=== PATIENT | female | born 1960 | race Caucasian/White ===

== ENCOUNTER 2022-06-12 13:04 | Outpatient (REF) | payer OTHER, SELFPAY ==
--- NOTE | ~2022-06-12 | XR_ITS ---
EXAMINATION: XR CHEST CLINICAL INFORMATION: Cough COMPARISON: None TECHNIQUE: 2 views of the chest were obtained. FINDINGS: No significant abnormality is noted involving the heart, lungs, mediastinum, bony thorax or soft tissues. XR/XR chest 2V IMPRESSION: Unremarkable examination.
[2022-06-12 15:01] LABS: Influenza A PCR NEGATIVE (Negative); Influenza B PCR NEGATIVE (Negative); Resp Syncy Virus RNA Qual PCR NEGATIVE (Negative); SARS COV2 PCR INHOUSE NEGATIVE (Negative)
== END 2022-06-12 13:05 | disposition home or self-care (01) ==
LOC: HO.HMGCX 13:04
PROVIDERS: PCP Internal Medicine; Visit Provider Nurse Practitioner Family
DX: Z20.822 Contact with and (suspected) exposure to COVID-19 (principal); R05.9 Cough, unspecified
CPT/HCPCS: 0241U; 71046

== ENCOUNTER 2025-05-09 12:34 | Outpatient (REF) | payer MEDICARE, OTHER, SELFPAY ==
--- OUTSIDE RECORDS SUMMARY | 2025-05-10 07:45 | XMS_ITS | Clinical Summary ---
Author Organization [facility] Address [address] [place] [address] Phone Care Team Providers Care Analytical Manager Name Role Phone Destinee Marx MD Primary Care Provider [phone] Allergies Active Allergy Reactions Criticality Noted Date Comments Doxycycline 02/20/2021 Levofloxacin 02/20/2021 Niacin 02/20/2021 Medications levothyroxine (SYNTHROID, LEVOTHROID) 125 MCG tablet 11/15/2020 Active omeprazole (PriLOSEC) [address] capsule 12/18/2020 Active Biotin 10 MG capsule Take 1 tablet by mouth 1 (one) time each day Active Cholecalciferol (Vitamin D) 25 MCG (1000 UT) tablet Take 1 tablet by mouth 1 (one) time each day Active Ascorbic Acid (vitamin C) 1000 MG tablet Take 1,000 mg by mouth 1 (one) time each day Active aspirin (ST SHELL) 81 MG EC tablet Take 81 mg by mouth 1 (one) time each day Active acetaminophen (TYLENOL) 500 MG tablet Take 1 mg by mouth every 6 (six) hours if needed for mild pain Active Active Problems Problem Noted Date Diagnosed Date Hypertension 02/21/2021 Family History Medical History Relation Comments Cancer Father Diabetes Mother Heart disease Mother Hypertension Mother Relation Status Comments Father Mother Social History Tobacco Use Types Packs/Day Years Used Date Smoking Tobacco: Never Smokeless Tobacco: Never Alcohol Use Standard Drinks/Week Comments Yes 0 (1 standard drink = 0.6 oz pur e alcohol) Comments Unknown Sex and Gender Information Value Date Recorded Sex Assigned at Not on file Legal Sex Female 5:00 PM EST Gender Identity Not on file Sexual Orientation Not on file Last Filed Vital Signs Vital Sign Reading Time Taken Comments Blood Pressure 150/108 02/20/2021 9:33 AM EDT Pulse 70 02/20/2021 9:33 AM EDT Temperature - - Respiratory Rate - - Oxygen Saturation - - Inhaled Oxygen Concentration - - Weight 78 kg (172 lb) 02/20/2021 9:33 AM EDT Height - - Body Mass Index - - Plan of Treatment Health Maintenance Due Date Last Done Comments Breast Cancer Screening 1960 Colorectal Cancer Screening: Annual FOBT 2009 Colorectal Cancer Screening: Colonoscopy 2009 Colorectal Cancer Screening: Sigmoidoscopy 2009 Pneumococcal Vaccine: 50+ Ye ars (1 of 1 - PCV) 2010 Influenza Vaccine (#1) 2025 Hepatitis B Vaccine Aged Out No longe r eligible based on patient's age to complete this topic Insurance [facility] Care Teams Analytical Manager Relationship Specialty Start Date End Date Destinee Marx MD [id number], [place] PCP - General Internal Medicine 01/08/21
== END 2025-05-09 12:35 | disposition home or self-care (01) ==
LOC: HO.HMGCLDS 12:34
PROVIDERS: PCP Internal Medicine; Visit Provider Internal Medicine
DX: Z00.00 Encounter for general adult medical examination without abnormal findings (principal); I10 Essential (primary) hypertension; E03.9 Hypothyroidism, unspecified; L65.9 Nonscarring hair loss, unspecified; M85.80 Other specified disorders of bone density and structure, unspecified site; R22.43 Localized swelling, mass and lump, lower limb, bilateral; Z79.899 Other long term (current) drug therapy
CPT/HCPCS: 96127; G0402

== ENCOUNTER 2025-05-09 12:34 | Outpatient (AMB) | payer MEDICARE, OTHER, SELFPAY ==
--- NOTE | 2025-05-09 12:45 | MHC.PC.OV ---
Vital Signs 05/09/25 12:52 05/09/25 13:35 Height 5 ft 6.77 in Weight 171 lb BMI 27.0 BP 168/106 H 150/98 H Blood Pressure Location Lt brachial Lt brachial Position Sitting Respiration 18 Pulse 77 Pulse Source Pulse Oximeter Temp 98.6 F Temp Source Temporal Artery Scan Pulse Oximetry (%) 98 Oxygen Delivery Method Room Air Intake Visit Reasons: Physical - see comments Electronic Service Technician Required: No Accompanied by: Self / Same As Patient Allergies niacin Adverse Reaction (Severe, Verified 05/09/25 12:45) Swelling doxycycline Adverse Reaction (Intermediate, Verified 05/09/25 12:45) Photosensitivity levofloxacin Adverse Reaction (Intermediate, Verified 05/09/25 12:45) Nausea and Vomiting Medication List - Last Reconciled 05/09/25 by Destinee Marx MD acetaminophen (Tylenol Extra Strength) 500 mg PO Q6H PRN ascorbate sodium (vitamin C) mg PO aspirin 81 mg PO DAILY cholecalciferol (vitamin D3) 25 mcg PO DAILY levothyroxine 112 mcg PO DAILY lisinopril 10 mg PO DAILY omeprazole 20 mg PO DAILY Tobacco use date assessed: 05/09/25 Fall risk assessment: 2 + Falls in past year Last assessed Fall Risk: 05/09/25 Dental Screening Dental Screen Date: 05/09/25 Did you have a dental visit in the last 12 months?: Yes Did you have a dental problem in the last 6 months where you did not have access to dental care?: No Was dental information given to patient?: Patient has dentist [facility] Medical History (Updated 05/09/25 @ 13:39 by Destinee Marx MD) Osteopenia Vitamin D deficiency Encounter for initial preventive physical examination covered by Medicare Diverticulitis Primary hypertension Acquired hypothyroidism Cough Surgical History (Updated 05/09/25 @ 12:39 by Destinee Marx MD) S/P partial colectomy S/P small bowel resection Family History (Updated 05/09/25 @ 12:40 by Destinee Marx MD) Other Rheumatoid arthritis Stomach cancer Social History Housing: House Patient Tobacco Use Status: Never used Tobacco e-Cigarette/Vaping Use: Never Used service: No Current occupational status: retired Questionnaire PHQ-9 Over the last 2 weeks, how often have you been bothered by any of the following problems? 1. Little interest or pleasure in doing things: not at all 2. Feeling down, depressed, or hopeless: not at all 3. Trouble falling or staying asleep, or sleeping too much: not at all 4. Feeling tired or having little energy: not at all 5. Poor appetite or overeating: not at all 6. Feeling bad about yourself - or that you are a failure or have let yourself or your family down: not at all 7. Trouble concentrating on things, such as reading the newspaper or watching television: not at all 8. Moving or speaking so slowly that other people could have noticed. Or the opposite - being so fidgety or restless that you have been moving around a lot more than usual: not at all 9. Thoughts that you would be better off or of hurting yourself in some way: not at all Total score: 0 Source: Developed by Drs. Filipe Pulido, Varsha Chang, Edilberto Landon and colleagues, with an educational nasima from [employer]. Thrive Questionnaire Date Thrive assessed: 05/09/25 I am a: Patient What is your living situation today?: I have a steady place to live Within the past 12 months, did the food you bought not last and you didn't have the money to get more?: Never true Within the past 12 months, did you worry whether your food would run out before you got money to buy more?: Never true Do you have trouble paying for medicines?: No Do you have trouble getting transportation to medical appointments?: No Do you have trouble paying your heating and electricity bill?: No Do you have trouble taking care of your child, family member or friend?: No Do you have trouble with day-to-day activities such as bathing, preparing meals, shopping, managing finances, etc.?: No Are you currently unemployed and looking for a job?: No Are you interested in more education?: No Please select the resources that you would like help with: None Currently or been in a relationship where the following occur: No concerns reported THRIVE Score: 0 AUDIT C Alcohol Use Questionnaire (AUDIT-C) 1. How often do you have a drink containing alcohol?: 2-4 times a month 2. How many drinks containing alcohol do you have on a typical day when you are drinking?: 1 or 2 3. How often do you have six or more drinks on one occasion?: Never Total Score: 2 CURTIS-7 AMB Questionnaire CURTIS-7 Date CURTIS - 7 assessed: 05/09/25 Feeling nervous, anxious, or on edge: 0 = Not at all Not being able to stop or control worryin = Not at all Worrying too much about different things: 0 = Not at all Trouble relaxin = Not at all Being so restless that it is hard to sit still: 0 = Not at all Becoming easily annoyed or irritable: 0 = Not at all Feeling afraid as if something awful might happen: 0 = Not at all Total CURTIS-7 score (0-4 normal; 5-9 mild; 10-14 moderate; 15-21 severe): 0 Source: Developed by Drs. Filipe Pulido, Varsha Chang, Edilberto Landon and colleagues, with an educational nasima from [employer]. Physical exam (Primary Care) Vital Signs: Last Vital Signs Temp 98.6 F 05/09/25 12:52 Pulse 77 05/09/25 12:52 Resp 18 05/09/25 12:52 BP 150/98 H 05/09/25 13:35 Pulse Ox 98 05/09/25 12:52 Oxygen Delivery Method Room Air 05/09/25 12:52 BMI result Body Mass Index 27.0 Tobacco/Smoking Status: Tobacco use Status Tobacco use date assessed 05/09/25 05/09/25 12:49 Patient Tobacco Use Status Never used Tobacco 05/09/25 12:49 e-Cigarette/Vaping Use Never Used 05/09/25 12:59 PHQ-9: PHQ-9 Score PHQ-9: Total score 0 05/09/25 13:57 Thrive Assessment: Date of Thrive Assessment Date Thrive assessed 05/09/25 05/09/25 12:49 Currently or been in a relationship where the following occur: No concerns reported Office Procedures Vision Screening Right Eye: 20/50 Left Eye: 20/40 Bilateral: 20/20 19807 - Vision Screening Coding CPT Codes Vision Screening - Vision Screenin - Vision Screening ([id number]) Assessment & Plan Assessment & Plan Orders: Orders AMB EKG-In Office Today Z00.00 - Encounter for general adult medical examination without abnormal findings Complete Blood Count Auto Diff Today E03.9 - Hypothyroidism, unspecified, E55.9 - Vitamin D deficiency, unspecified, I10 - Essential (primary) hypertension, M85.80 - Other specified disorders of bone density and structure, unspecified site Microalbumin, Random (w Creat) Today I10 - Essential (primary) hypertension Comprehensive Met. Panel Today E03.9 - Hypothyroidism, unspecified, E55.9 - Vitamin D deficiency, unspecified, I10 - Essential (primary) hypertension, M85.80 - Other specified disorders of bone density and structure, unspecified site Lipid Panel Today E03.9 - Hypothyroidism, unspecified, E55.9 - Vitamin D deficiency, unspecified, I10 - Essential (primary) hypertension, M85.80 - Other specified disorders of bone density and structure, unspecified site Hemoglobin A1c Today E03.9 - Hypothyroidism, unspecified, E55.9 - Vitamin D deficiency, unspecified, I10 - Essential (primary) hypertension, M85.80 - Other specified disorders of bone density and structure, unspecified site TSH reflex Free T4 Today E03.9 - Hypothyroidism, unspecified, E55.9 - Vitamin D deficiency, unspecified, I10 - Essential (primary) hypertension, M85.80 - Other specified disorders of bone density and structure, unspecified site Ferritin Today E03.9 - Hypothyroidism, unspecified, E55.9 - Vitamin D deficiency, unspecified, I10 - Essential (primary) hypertension, M85.80 - Other specified disorders of bone density and structure, unspecified site IRON PROFILE Today E03.9 - Hypothyroidism, unspecified, E55.9 - Vitamin D deficiency, unspecified, I10 - Essential (primary) hypertension, M85.80 - Other specified disorders of bone density and structure, unspecified site Magnesium Today E03.9 - Hypothyroidism, unspecified, E55.9 - Vitamin D deficiency, unspecified, I10 - Essential (primary) hypertension, M85.80 - Other specified disorders of bone density and structure, unspecified site Vitamin B12 Today E03.9 - Hypothyroidism, unspecified, E55.9 - Vitamin D deficiency, unspecified, I10 - Essential (primary) hypertension, M85.80 - Other specified disorders of bone density and structure, unspecified site Vitamin D 25-OH Total Today E03.9 - Hypothyroidism, unspecified, E55.9 - Vitamin D deficiency, unspecified, I10 - Essential (primary) hypertension, M85.80 - Other specified disorders of bone density and structure, unspecified site
[2025-05-09 12:52] VITALS: BP 168/106; PULSE 77; RESP 18; TEMP 37; O2SAT 98; BMI 27.0
[2025-05-09 13:35] VITALS: BP 150/98
--- NOTE | 2025-05-09 13:57 | AM.OFFVISMDC ---
Intake Vital Signs 05/09/25 12:52 05/09/25 13:35 Height 5 ft 6.77 in Weight 171 lb BMI 27.0 BP 168/106 H 150/98 H Blood Pressure Location Lt brachial Lt brachial Position Sitting Respiration 18 Pulse 77 Pulse Source Pulse Oximeter Temp 98.6 F Temp Source Temporal Artery Scan Pulse Oximetry (%) 98 Oxygen Delivery Method Room Air Intake Visit Reasons: Physical - see comments Irrigation Engineer Required: No Accompanied by: Self / Same As Patient Allergies niacin Adverse Reaction (Severe, Verified 05/09/25 12:45) Swelling doxycycline Adverse Reaction (Intermediate, Verified 05/09/25 12:45) Photosensitivity levofloxacin Adverse Reaction (Intermediate, Verified 05/09/25 12:45) Nausea and Vomiting Medication List - Last Reconciled 05/09/25 by Destinee Marx MD acetaminophen (Tylenol Extra Strength) 500 mg PO Q6H PRN ascorbate sodium (vitamin C) mg PO aspirin 81 mg PO DAILY cholecalciferol (vitamin D3) 25 mcg PO DAILY levothyroxine 112 mcg PO DAILY lisinopril 10 mg PO DAILY omeprazole 20 mg PO DAILY HPI HPI Comments History of Present Illness Details The patient is a 65 year old female presenting for re-establishment of care, a Welcome to Medicare physical. Health Risk Assessment completed. No cognitive deficits, no opioid use. Essential Hypertension: The patient manages hypertension with lisinopril but takes only one 10mg pill, as when she took two-10mg pills she got chest pressure. The patient's blood pressure was elevated upon arrival, which the patient attributes to a stressful conversation. Hypothyroidism: The patient reports symptoms suggestive of hypothyroidism over the past three to six months, including increased hair thinning and feeling colder than usual. Conjunctivochalasis: The patient is scheduled for bilateral eye surgery for conjunctivochalasis on Thursday. This condition has been causing distorted vision and a persistent foreign body sensation in the ayes, with the right eye being worse than the left. Health Maintenance: This is the patient's first Welcome to Medicare visit since recently becoming eligible. The patient completed a Cologuard test approximately two years ago, with normal results per patient(will obtain record). A previous bone density scan revealed mild osteopenia. The next mammogram is due in August 2025. The patient declines flu and COVID-19 immunizations, citing a previous adverse reaction to a shot that caused prolonged symptoms, including cardiac issues. Gastrointestinal History: The patient takes prescription omeprazole and reports being free of reflux symptoms. Since a past colon surgery, the patient experiences intermittent changes in bowel movements and occasional abdominal cramping, which can be triggered by certain foods. Care Team OBGYN- Dr. Finley Ophthalmology- Dr. Ladd [facility] Medical History (Updated 05/09/25 @ 13:39 by Destinee Marx MD) Osteopenia Vitamin D deficiency Encounter for initial preventive physical examination covered by Medicare Diverticulitis Primary hypertension Acquired hypothyroidism Cough Surgical History (Updated 05/09/25 @ 12:39 by Destinee Marx MD) S/P partial colectomy S/P small bowel resection Family History (Updated 05/09/25 @ 12:40 by Destinee Marx MD) Other Rheumatoid arthritis Stomach cancer Social History Patient Tobacco Use Status: Never used Tobacco Questionnaire Medicare Wellness Checkup [age] What gender do you identify with?: female During the past 4 weeks, how much have you been bothered by emotional problems such as feeling anxious, depressed, irritable, sad or downhearted, and blue?: not at all During the past 4 weeks, has your physical & emotional health limited your social activities with family, friends, neighbors, or groups?: not at all During the past 4 weeks, how much bodily pain have you generally had?: no pain During the past 4 weeks, was someone available to help you if you needed & wanted help?: yes, as much as I wanted During the past 4 weeks, what was the hardest physical activity you could do for at least 2 minutes?: very heavy Can you get to places out of walking distance without help? (For eg., can you travel alone on buses, taxis or drive your car?): Yes Can you go shopping for groceries or clothes without someone's help?: Yes Can you prepare your own meals?: Yes Can you do your housework without help?: Yes Because of any health problems, do you need the help of another person with your personal care needs such as eating, bathing, dressing or getting around the house?: No Can you handle your own money without help?: Yes During the past 4 weeks, how would you rate your health in general?: excellent During the past 4 weeks how have things been going for you?: very well; could hardly better Are you having difficulties driving your car?: no Do you always fasten your seat belt when you are in a car?: yes, usually During past 4 weeks, have you been bothered by the following: never: Falling or dizzy when standing up, Trouble eating well?, Teeth or denture problems?, Problems using the telephone? and Tiredness or fatigue? Have you fallen 2 or more times in the past year?: Yes Are you afraid of falling?: No Are you a smoker?: no During the past 4 weeks, how many drinks of wine, beer, or other alcoholic beverages did you have?: 1 drink or less per week Do you exercise for about 20 minutes 3 or more times a week?: yes, most of the time Have you been given information to help with the following?: no: Hazards in your house that might hurt you? and no: Keeping track of your medications? How often do you have trouble taking medicines the way you have been told to take them?: I always take medicine as prescribed How confident are you that you can control & manage most of your health problems?: very confident What is your race?: White PHQ-9 Over the last 2 weeks, how often have you been bothered by any of the following problems? 1. Little interest or pleasure in doing things: not at all 2. Feeling down, depressed, or hopeless: not at all 3. Trouble falling or staying asleep, or sleeping too much: not at all 4. Feeling tired or having little energy: not at all 5. Poor appetite or overeating: not at all 6. Feeling bad about yourself - or that you are a failure or have let yourself or your family down: not at all 7. Trouble concentrating on things, such as reading the newspaper or watching television: not at all 8. Moving or speaking so slowly that other people could have noticed. Or the opposite - being so fidgety or restless that you have been moving around a lot more than usual: not at all 9. Thoughts that you would be better off or of hurting yourself in some way: not at all Total score: 0 Depression Screening Interpretation: Negative Depression Screening Done: Yes 14092 - PHQ-9 Billing: Yes Source: Developed by Drs. Filipe Pulido, Edilberto Lowe and colleagues, with an educational nasima from [employer]. Thrive Questionnaire Date Thrive assessed: 05/09/25 I am a: Patient What is your living situation today?: I have a steady place to live Within the past 12 months, did the food you bought not last and you didn't have the money to get more?: Never true Within the past 12 months, did you worry whether your food would run out before you got money to buy more?: Never true Do you have trouble paying for medicines?: No Do you have trouble getting transportation to medical appointments?: No Do you have trouble paying your heating and electricity bill?: No Do you have trouble taking care of your child, family member or friend?: No Do you have trouble with day-to-day activities such as bathing, preparing meals, shopping, managing finances, etc.?: No Are you currently unemployed and looking for a job?: No Are you interested in more education?: No Please select the resources that you would like help with: None Currently or been in a relationship where the following occur: No concerns reported THRIVE Score: 0 CURTIS-7 AMB Questionnaire CURTIS-7 Date CURTIS - 7 assessed: 05/09/25 Feeling nervous, anxious, or on edge: 0 = Not at all Not being able to stop or control worryin = Not at all Worrying too much about different things: 0 = Not at all Trouble relaxin = Not at all Being so restless that it is hard to sit still: 0 = Not at all Becoming easily annoyed or irritable: 0 = Not at all Feeling afraid as if something awful might happen: 0 = Not at all Total CURTIS-7 score (0-4 normal; 5-9 mild; 10-14 moderate; 15-21 severe): 0 Source: Developed by Drs. Filipe Pulido, Edilberto Lowe and colleagues, with an educational nasima from [employer]. AUDIT C Alcohol Use Questionnaire (AUDIT-C) 1. How often do you have a drink containing alcohol?: 2-4 times a month 2. How many drinks containing alcohol do you have on a typical day when you are drinking?: 1 or 2 3. How often do you have six or more drinks on one occasion?: Never Total Score: 2 Review of Systems Narrative Review of Systems - General: Reports cold intolerance for the last 6 months. - Eyes: Reports distorted vision and a sensation of something being in the eyes. - Cardiovascular: Denies current chest pain but reports past experience of chest pressure with a higher dose of lisinopril. - Gastrointestinal: Denies reflux symptoms; reports occasional post-surgical abdominal cramping and altered bowel movements. - Neurological: Reports two falls from tripping but denies dizziness on standing. - Musculoskeletal: Denies pain. -- Dermatologic: Reports hair thinning for the past 3-6 months. Physical Exam Exam Exam: Physical Exam - Vitals: Repeat blood pressure is 150/98 mmHg. - HEENT: Ears are clear , normal tympanic membanres . Oropharynx is unremarkable. - Neck: Carotid arteries are normal on auscultation. - Cardiovascular: Normal rhythm with a soft murmur. - Pulmonary: Lungs are clear to auscultation bilaterally with no wheezing. - Abdomen: Soft, non-distended, and non-tender with normal bowel sounds. - Extremities: Trace pitting edema noted bilaterally in the lower extremities. Vital Signs: Last Vital Signs Temp 98.6 F 05/09/25 12:52 Pulse 77 05/09/25 12:52 Resp 18 05/09/25 12:52 BP 150/98 H 05/09/25 13:35 Pulse Ox 98 05/09/25 12:52 Oxygen Delivery Method Room Air 05/09/25 12:52 BMI result Body Mass Index 27.0 Office Procedures Vision Screening Right Eye: 20/50 Left Eye: 20/40 Bilateral: 20/20 43942 - Vision Screening Assessment & Plan Assessment & Plan (1) Primary hypertension: Code(s): I10 - Essential (primary) hypertension (2) Acquired hypothyroidism: Code(s): E03.9 - Hypothyroidism, unspecified (3) Encounter for initial preventive physical examination covered by Medicare: Code(s): Z00.00 - Encounter for general adult medical examination without abnormal findings Plan Assessment and Plan 1. Hypertension The patient's blood pressure remains elevated at 150/98 mmHg, thought to be partly stress-induced. Due to a history of chest pressure with a higher dose, the plan is to cautiously increase the lisinopril dose to a total of 15 mg daily, split into a 10 mg dose and a 5 mg (half-pill) dose to improve tolerance. The patient will monitor blood pressure at home for one week and report the readings. A urine sample will be collected to check for proteinuria. 2. Hypothyroidism and Hair Loss The patient reports symptoms of cold intolerance and hair thinning, which may be related to an underactive thyroid. A comprehensive fasting lab panel is ordered to check thyroid function, iron, and B12 levels to investigate the cause of these symptoms. Thyroid medication may be adjusted based on the results. 3. Preventative Care / Welcome to Medicare Visit As this is the patient's initial Medicare visit, a Health Risk Assessment was completed. A baseline EKG and a vision screening will be performed today. The patient declined all immunizations. The plan includes verifying the date of the last Cologuard test and ensuring the patient schedules a follow-up with gynecology. A follow-up visit is scheduled in three months. 4. Osteopenia A previous bone density scan showed mild osteopenia. Vitamin D and calcium levels will be checked as part of the ordered lab work to ensure they are optimized. 5. Trace Lower Extremity Edema Trace edema was found on examination. This may be related to diet. The patient is advised to monitor salt intake and elevate the legs when sitting. Plan - Will increase lisinopril to a total of 15 mg daily, taken as one 10 mg dose and a half-pill dose, to address elevated blood pressure while monitoring for side effects. - Patient to monitor blood pressure at home in the morning and evening for one week and report back via portal or phone call. - Ordered fasting labs, including a full profile, thyroid labs, urine sample, vitamin D, calcium, iron, and B12 levels. - A baseline EKG and a vision screening to be performed in the office today [facility] EKG showed NSR, normal axis. - Advised patient to reduce salt intake and elevate legs to manage trace lower extremity edema. - Will confirm the date of the last Cologuard test. - Recommended patient schedule an appointment for gynecological follow-up. - Patient to follow up in the clinic in three months to review lab results and monitor blood pressure. Discussion Notes I had a detailed discussion with the patient regarding the management of elevated blood pressure. Given the history of chest pressure with a higher dose of lisinopril, we agreed on a trial of increasing the total daily dose to 15 mg by splitting it (one full pill and one half pill) to improve tolerability. I instructed the patient to monitor blood pressure readings at home for a week and communicate the results. We also discussed the symptoms of hair thinning and cold intolerance, and I explained that we would investigate this with lab work, including thyroid, iron, and B12 levels. I reviewed the requirements for the Patient Instructions - Increase your lisinopril dose to 15 mg total per day. You can try taking one full pill at one time and a half pill at another time (e.g., morning and evening) to see if you tolerate it better. - Check your blood pressure at home in the morning and evening for the next week. Please call our office or send a message through the patient portal with your readings. - Please go to a lab location to have blood work and a urine sample collected. You will need to fast (no food or drink, except water) for 8-10 hours beforehand. - To help with the swelling in your ankles, try to reduce the amount of salt in your diet and elevate your feet when you are sitting. - Please schedule an appointment with your family helper. Orders: Orders AMB EKG-In Office Today Z00.00 - Encounter for general adult medical examination without abnormal findings Complete Blood Count Auto Diff Today E03.9 - Hypothyroidism, unspecified, E55.9 - Vitamin D deficiency, unspecified, I10 - Essential (primary) hypertension, M85.80 - Other specified disorders of bone density and structure, unspecified site Microalbumin, Random (w Creat) Today I10 - Essential (primary) hypertension Comprehensive Met. Panel Today E03.9 - Hypothyroidism, unspecified, E55.9 - Vitamin D deficiency, unspecified, I10 - Essential (primary) hypertension, M85.80 - Other specified disorders of bone density and structure, unspecified site Lipid Panel Today E03.9 - Hypothyroidism, unspecified, E55.9 - Vitamin D deficiency, unspecified, I10 - Essential (primary) hypertension, M85.80 - Other specified disorders of bone density and structure, unspecified site Hemoglobin A1c Today E03.9 - Hypothyroidism, unspecified, E55.9 - Vitamin D deficiency, unspecified, I10 - Essential (primary) hypertension, M85.80 - Other specified disorders of bone density and structure, unspecified site TSH reflex Free T4 Today E03.9 - Hypothyroidism, unspecified, E55.9 - Vitamin D deficiency, unspecified, I10 - Essential (primary) hypertension, M85.80 - Other specified disorders of bone density and structure, unspecified site Ferritin Today E03.9 - Hypothyroidism, unspecified, E55.9 - Vitamin D deficiency, unspecified, I10 - Essential (primary) hypertension, M85.80 - Other specified disorders of bone density and structure, unspecified site IRON PROFILE Today E03.9 - Hypothyroidism, unspecified, E55.9 - Vitamin D deficiency, unspecified, I10 - Essential (primary) hypertension, M85.80 - Other specified disorders of bone density and structure, unspecified site Magnesium Today E03.9 - Hypothyroidism, unspecified, E55.9 - Vitamin D deficiency, unspecified, I10 - Essential (primary) hypertension, M85.80 - Other specified disorders of bone density and structure, unspecified site Vitamin B12 Today E03.9 - Hypothyroidism, unspecified, E55.9 - Vitamin D deficiency, unspecified, I10 - Essential (primary) hypertension, M85.80 - Other specified disorders of bone density and structure, unspecified site Vitamin D 25-OH Total Today E03.9 - Hypothyroidism, unspecified, E55.9 - Vitamin D deficiency, unspecified, I10 - Essential (primary) hypertension, M85.80 - Other specified disorders of bone density and structure, unspecified site Quality Reporting (2020) Depression/Bipolar (159/160/161/177) PHQ-9: Total score: 0 Coding Level of Care Code Medicare First (G0438) Diagnoses Primary hypertension I10 Acquired hypothyroidism E03.9 Encounter for initial preventive physical examination covered by Medicare Z00.00 CPT Codes Vision Screening - Vision Screenin - Vision Screening ([id number]) Additional Codes PHQ-9 - 59704 - PHQ-9 Billing: Yes ([id number]) Comment add [id number] code
== END 2025-05-09 13:59 | disposition home or self-care (01) ==
LOC: HO.HMCHD 12:35
PROVIDERS: PCP Internal Medicine; Visit Provider Internal Medicine
DX: Z00.00 Encounter for general adult medical examination without abnormal findings (principal); I10 Essential (primary) hypertension; E03.9 Hypothyroidism, unspecified

== ENCOUNTER 2025-05-10 07:48 | Outpatient (REF) | payer MEDICARE, OTHER, SELFPAY ==
[2025-05-10 10:17] LABS: MANUAL DIFF FLAG NO
[2025-05-10 10:32] LABS: Hematocrit 44.5 % (37.0-47.0); Hemoglobin 14.7 g/dl (12.0-16.0); Imm Gran Abs Auto 0.01 X10*3/uL (0.00-0.03); Imm Gran Pct Auto 0.2 % (0.0-0.4); Lymphocytes Absolute Auto 2.2 X10*3/uL (1.2-4.9); Mean Corpuscular HGB Conc 33.0 g/dl (31.0-35.0); Mean Corpuscular Hemoglobin 29.3 pg (27.0-33.0); Mean Corpuscular Volume 88.6 fL (80.0-98.0); NRBC Abs Auto 0.000 X10*3/uL (0.0-0.012); NRBC Pct Auto 0.0 /100WBC (0.0-0.2); Platelet Count 254 X10*3/uL (160-400); Red Blood Count 5.02 X10*6/uL (4.20-5.50); White Blood Count 5.1 X10*3/uL (4.8-10.8)
[2025-05-10 10:58] LABS: Alanine Aminotransferase 31 U/L (0-31); Albumin Level 4.4 g/dL (3.5-5.0); Alkaline Phosphatase 92 U/L (39-117); Anion Gap 9 (12-20); Aspartate Amino Transferase 28 U/L (5-31); Blood Urea Nitrogen 13 mg/dL (9-16); Calcium 10.2 mg/dL (8.4-10.2); Carbon Dioxide 25 mmol/L (22-29); Chloride 110 mmol/L (96-108); Cholesterol 242 mg/dL (<200); Estimated Glomerular Filt Rate > 60; HDL Cholesterol 71 mg/dL (>40); Iron 154 mcg/dL (30-160); Magnesium 2.0 mg/dL (1.6-2.6); Percent Iron Saturation 59 % (15-50); Potassium 3.8 mmol/L (3.3-5.1); Sodium 140 mmol/L (135-145); Total Iron Binding Capacity 260 mcg/dL (228-428); Total Protein 6.9 g/dL (6.5-8.0); Triglycerides 101 mg/dL (<150); Unsaturated Iron Binding 106 ug/dL
[2025-05-10 11:19] LABS: Ferritin 292 ng/mL (10-250)
[2025-05-10 11:22] LABS: Microalbum/Creatinine Ratio Ur 3.8 ug/mg cr (<30)
[2025-05-10 11:28] LABS: Vitamin B12 948 pg/mL (200-900)
== END 2025-05-10 07:49 | disposition home or self-care (01) ==
LOC: HO.HMGCLDS 07:48
PROVIDERS: PCP Internal Medicine; Visit Provider Internal Medicine
DX: I10 Essential (primary) hypertension (principal); E03.9 Hypothyroidism, unspecified; E55.9 Vitamin D deficiency, unspecified; M85.80 Other specified disorders of bone density and structure, unspecified site; Z13.1 Encounter for screening for diabetes mellitus; Z13.0 Encounter for screening for diseases of the blood and blood-forming organs and certain disorders involving the immune mechanism
CPT/HCPCS: 36415; 80053; 80061; 82043; 82306; 82570; 82607; 82728; 83036; 83540; 83735; 84443; 85025